=== PATIENT | female | born 1990 | race African-American/Black ===

== ENCOUNTER 2019-07-17 05:32 | Observation (INO) | payer OTHER ==
[2019-07-14 12:07] LABS: BASOPHILS % 0.3 % (0.0-1.0); EOSINOPHILS # (AUTO) 0.1 (0.0-0.4); EOSINOPHILS % 1.8 % (0.0-6.0); HEMATOCRIT 36.6 % (34.2-44.1); HEMOGLOBIN 12.4 g/dL (12.0-16.0); LYMPHOCYTES # (AUTO) 1.6 (1.0-3.2); LYMPHOCYTES % 26.6 % (18.0-39.1); MEAN CORPUSCULAR HEMOGLOBIN 31.9 pg (28-32); MEAN CORPUSCULAR HGB CONC 33.9 g/dL (31-35); MEAN CORPUSCULAR VOLUME 94.1 fL (81-99); MONOCYTES # (AUTO) 0.4 (0.2-0.8); MONOCYTES % 7.2 % (4.4-11.3); NEUTROPHILS # (AUTO) 3.9 (2.1-6.9); NEUTROPHILS % 63.8 % (38.7-80.0); PLATELET COUNT 222 x10e3/uL (140-360); RED BLOOD COUNT 3.89 x10e6/uL (3.6-5.1); RED CELL DISTRIBUTION WIDTH 11.6 % (11.7-14.4)
--- NOTE | 2019-07-14 12:08 | Diagnostic Imaging Report ---
EXAMINATION: CHEST 2 VIEWS INDICATION: Pre-operative COMPARISON: None FINDINGS: LINES/TUBES:None LUNGS:The lungs are well-inflated. No focal consolidation or pulmonary edema. PLEURA:No pleural effusion or pneumothorax. MEDIASTINUM:The cardiomediastinal silhouette appears normal in size and shape. BONES/SOFT TISSUES:No acute osseous injury. ABDOMEN:No free air under the diaphragm. IMPRESSION: No focal pneumonia or pulmonary edema. Signed by: Enrique Ibrahim MD on 07/14/2019 12:06 PM
[2019-07-14 12:22] LABS: CLARITY,URINE CLEAR (CLEAR); COLOR,URINE YELLOW (YELLOW); LEUKOCYTE ESTERASE ,URINE NEGATIVE (NEGATIVE)
[2019-07-14 12:23] LABS: BILIRUBIN,URINE NEGATIVE (NEGATIVE); KETONES,URINE NEGATIVE (NEGATIVE); NITRITE,URINE NEGATIVE (NEGATIVE); PROTEIN,URINE DIPSTICK NEGATIVE (NEGATIVE); URINE UROBILINOGEN 0.2 mg/dL (0.2 - 1)
[2019-07-14 12:30] LABS: HIV 1&2 AB SCREEN NON-REACTIVE (NONREACTIVE)
[~2019-07-17 05:32] MED LIST: IRON256 MG PO
--- OUTSIDE RECORDS SUMMARY | 2019-07-17 05:43 | XMS REPORT ---
Author Author [facility] Address Unknown Phone Unavailable Care Team Providers Care Real Estate Lawyer Name Role Phone Ophelia MANNING Unavailable Unavailable Problems This patient has no known problems. Allergies, Adverse Reactions, Alerts This patient has no known allergies or adverse reactions. Medications This patient has no known medications. Results Test Description Test Time Test Comments Text Results Atomic Results Result Comments CHEST 2 VIEWS 2019-07-14 12:06:00 [place] [id number] Patient Name: MIRTA THOMPSON MR #: [id number] : 1990 Age/Sex: 28/F Req #: [id number] Adm Physician: Ordered by: LUCINDA MANNING MD Report #: [id number] Location: OR Room/Bed: Procedure: [id number] DX/CHEST 2 VIEWS Exam Date: Exam Time: REPORT STATUS: Signed EXAMINATION: CHEST 2 VIEWS INDICATION: Pre-operative COMPARISON: None FINDINGS: LINES/TUBES:None LUNGS:The lungs are well- inflated. No focal consolidation or pulmonary edema. PLEURA:No pleural effusion or pneumothorax. MEDIASTINUM:The cardiomediastinal silhouette appears normal in size and shape. BONES/SOFT TISSUES:No acute osseous injury. ABDOMEN:No free air under the diaphragm. IMPRESSION: No focal pneumonia or pulmonary edema. Signed by: Fabio Concepcion MD on 07/14/2019 12:06 PM Dictated By: FABIO CONCEPCION MD [id number] Transcribed By: DENIZ on 07/14/19 1206 COPY TO: LUCINDA MANNING MD
[2019-07-17] MEDS ORDERED: CEFOXITIN 1GM/ D5W 50ML 100 ML IV ONE (06:00)
[2019-07-17] MEDS ORDERED: BUPIVACAINE LIPOSOME/PF 266 MG/20 ML IJ ONE (07:03)
[2019-07-17] MEDS ORDERED: SODIUM CHLORIDE 0.9% 0 ML ONE (07:26)
[2019-07-17] MEDS ORDERED: BUPIVACAINE HCL 0.5% INJ 30 ML VIAL INJ ONE (08:00)
[2019-07-17] MEDS ORDERED: HYDROMORPHONE 0.2MG/ML-SOD CHL 30ML PCA SYRINGE IV ONE (11:53)
[2019-07-17] MEDS ORDERED: GLYCOPYRROLATE INJ 0.2 MG/ML VIAL ONE (14:16)
[2019-07-17] MEDS ORDERED: PROPOFOL IV EMULSION 10 MG/ML 20 ML VIAL ONE (14:16)
[2019-07-17] MEDS ORDERED: NEOSTIGMINE 1 MG/ML 10ML VIAL ONE (14:16)
[2019-07-17] MEDS ORDERED: VASOPRESSIN INJ 20 UNIT/ML VIAL ONE (14:16)
[2019-07-17] MEDS ORDERED: DEXAMETHASONE SOD PHOS INJ 4 MG/ML VIAL ONE (14:16)
[2019-07-17] MEDS ORDERED: ACETAMINOPHEN 1000 MG/100 ML IV ONE (14:16)
[2019-07-17] MEDS ORDERED: ROCURONIUM BROMIDE 10 MG/ML 5ML VIAL ONE (14:16)
[2019-07-17] MEDS ORDERED: LIDOCAINE HCL 2% LOCAL INJ 5 ML SDV VIAL INJ ONE (14:16)
[2019-07-17] MEDS ORDERED: SEVOFLURANE INHAL SOLN 250 ML PEN BTL ONE (14:16)
[2019-07-17] MEDS ORDERED: ONDANSETRON HCL INJ 2MG/ML 2ML 2 MG/ML VIAL ONE (14:16)
[2019-07-17] MEDS ORDERED: FENTANYL CITRATE/PF 100MCG/2 ML INJ ONE (14:37)
[2019-07-17] MEDS ORDERED: MIDAZOLAM HCL 2 MG/2 ML VIAL ONE (14:37)
[2019-07-17] MEDS ORDERED: CEFOXITIN 2GM/ D5W 50ML 50 ML IV SCH (15:00)
[2019-07-17] MEDS ORDERED: NALOXONE HCL INJ 0.4 MG/ML AMP IV PRN (15:15)
[2019-07-17] MEDS ORDERED: KETOROLAC TROMETHAMINE 30 MG/ML VIAL IV PRN (15:15)
[2019-07-17] MEDS ORDERED: HYDROMORPHONE 0.2MG/ML-SOD CHL 30ML PCA SYRINGE IV PRN (15:15)
[2019-07-17 15:43] VITALS: BP 96/57
[2019-07-17] MEDS: DEXTROSE 5%/LACTATED RINGERS 1,000 ML IV SCH ×2 (16:37→23:30)
[2019-07-17 17:26] VITALS: BP 96/57
--- NOTE | 2019-07-17 17:56 | Operative Report ---
DATE OF PROCEDURE: 07/17/2019 SURGEON: Ko Sosa MD PREOPERATIVE DIAGNOSES: A 28-year-old female, 0 with several multiple large fibroids of the uterus, blocking both ureters and pressing on the bladder causing bilateral hydronephrosis and distended bladder. POSTOPERATIVE DIAGNOSES: A 28-year-old female, 0 with several multiple large fibroids of the uterus blocking both ureters and pressing on the bladder causing bilateral hydronephrosis and distended bladder. PROCEDURES DONE: 1. Exploratory laparotomy. 2. Multiple myomectomy, removed 6 large fibroids from the uterus. [employer] S[employer] SPECIALIST: Johan Marsh MD. ANESTHESIA: General. FINDINGS: At the time of surgery and EUA, cervix looked normal. Uterus is enlarged about 24 weeks of the size, irregular, firm. On laparotomy, has several fibroids, very vascular, the largest one two of them one arising from the front of the uterus on the right side, one arising from the back of the uterus on the right side, about 10 cm each and the third one was in the posterior wall of the uterus in the muscle of the uterus about 8 to 9 cm size of may be 10 cm. The other 3 were coming from the posterior wall of the uterus. Two of them were subserosal and one was intramuscular. I have pictures on the postop note about the location. At the end of the procedure, the uterus is slightly enlarged and removed all almost all fibroids and there is incision on the front of the uterus about 6 to 7 cm size each, did not enter the uterine cavity. Hemostasis satisfactory. No complications. Estimated blood loss around 300 mL. Injected diluted Pitocin i.e. vasopressin one in 30 dilution with saline around the fibroids and along the incision lines before removal and injected the local anesthesia Exparel 20 mL into the abdominal wall and Marcaine into the skin 20 mL at the end of the procedure. Urine clear in the Brumfield bag. COUNTS: Instrument and swab counts were correct. PROCEDURE IN DETAIL: The patient was brought to the operating room, put in the supine position, and general anesthesia was given without any problems. After adequate anesthesia, the patient was examined under anesthesia and findings are as dictated above. Then, she was prepped and draped in the routine fashion and proceeded with the surgery. Brumfield catheter was in the bladder draining clear urine. I then made subumbilical midline vertical incision below the umbilicus and taken down to the fascia. The fascia opened in a vertical fashion and then muscle and identified the parietal peritoneum, opened and entered the abdominal cavity without any problems. Could not put the O'Ashvin-O'Dior retractor because of the large fibroids and gently delivered the uterus along with the fibroids through the incision outside so that surgery could be easy and then all the wet laps put around the uterus and fibroid tumors and took the picture and then did myomectomy one at a time. The one large very vascular fibroid was coming from the front of the uterus on the right side just below the tubal entry that is cornua, that was very vascular, had to tie the blood vessels before making any incision and injected the diluted Pitocin about 1 in 30 dilution with normal saline and injected all around the stump of the fibroids, it was subserosal. The base was very wide and very vascular and then after injecting then made a circular incision and dissected and then clamped the base vessels with the Cook clamps two of them and cut in between and the stump was suture ligated using 1-0 Vicryl and then put tight stitches one layer to stop the bleeding with 1-0 Vicryl and then serosa approximated with 2-0 Vicryl with continuous stitches. With that, the hemostasis was satisfactory and then we went for the second one that was coming from the back of the uterus on to the right side close to the fundus and that one was removed in the same way like the first one and then two more were coming from the fundus of the uterus subserous, injected the diluted Pitocin all around the stumps and then made a circular incision around the fibroid tumor, held the fibroid with towel clip and then dissected all the serosa and clamped the base of the fibroid and removed suture ligated the base using 1-0 Vicryl and then the serosa approximated with 2-0 Vicryl with continuous stitches. After removing these four, there was a huge big one in the posterior wall of the uterus intramuscular, that one in the back wall, injected the Pitocin and made a vertical incision on the back of the uterus and dissected and shelled out the tumor. The tumor held with the [place] clamp and dissected the serosa and at the base clamped with Cook clamp, cut towards the fibroid and removed the fibroids and base was suture ligated using 1-0 Vicryl, suture tie snugged and cut short and then had to put the muscle approximated with 0 Vicryl with continuous stitches two layers and then the serosa approximated with 2-0 Vicryl with continuous stitches. Did not enter the cavity of the uterus. The hemostasis was satisfactory. Altogether, removed 6 tumors and then had to put couple of [id number] stitches in the anterior incision for the hemostasis. The hemostasis was satisfactory and the uterus almost normal size, slightly enlarged and both tubes and ovaries look normal, irrigated and put back the uterus. Hemostasis was satisfactory and covered the incision's back wall and the front wall with Interceed and then closed the abdominal wall in layers. Parietal peritoneum was closed with 3-0 Vicryl with continuous stitches and the fascia was closed with 1 Vicryl using two sutures starting at the corners and ending in the middle and subcutaneous tissue approximated with 2-0 Vicryl with continuous stitches and skin approximated with aly. The patient tolerated the procedure well. There were no complications. Estimated blood loss around 300 mL. No transfusion and urine clear in the Brumfield bag and the patient moved to the recovery room in stable condition. MD SUMI Santiago/JOSHUAL /[id number]
[2019-07-17] MEDS: CEFOXITIN SODIUM 2 G in SODIUM CHLORIDE 0.9% 50ML 50 ML IV SCH ×2 (18:23→22:00)
[2019-07-17] MEDS: ONDANSETRON HCL INJ 2MG/ML 2ML 2 MG/ML VIAL IV PRN (19:13)
[2019-07-17 20:00] VITALS: BP 107/69
[2019-07-17 21:00] VITALS: BP 107/69
[2019-07-18] VITALS (7 sets, daily range): BP systolic 88–119; BP diastolic 53–63
[2019-07-18] MEDS ORDERED: DIPHENHYDRAMINE HCL 25 MG CAP PO PRN (02:45)
[2019-07-18] MEDS: CEFOXITIN SODIUM 2 G in SODIUM CHLORIDE 0.9% 50ML 50 ML IV SCH ×2 (04:00→10:00)
[2019-07-18 05:09] LABS: BASOPHILS % 0.1 % (0.0-1.0); EOSINOPHILS % 0.2 % (0.0-6.0); HEMATOCRIT 27.8 % (34.2-44.1); HEMOGLOBIN 9.4 g/dL (12.0-16.0); LYMPHOCYTES # (AUTO) 1.3 (1.0-3.2); LYMPHOCYTES % 14.2 % (18.0-39.1); MEAN CORPUSCULAR HEMOGLOBIN 32.1 pg (28-32); MEAN CORPUSCULAR HGB CONC 33.8 g/dL (31-35); MEAN CORPUSCULAR VOLUME 94.9 fL (81-99); MONOCYTES # (AUTO) 0.7 (0.2-0.8); MONOCYTES % 7.5 % (4.4-11.3); NEUTROPHILS # (AUTO) 7.1 (2.1-6.9); NEUTROPHILS % 77.8 % (38.7-80.0); PLATELET COUNT 180 x10e3/uL (140-360); RED BLOOD COUNT 2.93 x10e6/uL (3.6-5.1); RED CELL DISTRIBUTION WIDTH 11.4 % (11.7-14.4)
[2019-07-18 05:29] LABS: ANION GAP 10.4 mmol/L (8-16); BLOOD UREA NITROGEN < 5 mg/dL (7-26); CARBON DIOXIDE 24 mmol/L (22-29); CHLORIDE 106 mmol/L (98-107); CREATININE, SERUM 0.69 mg/dL (0.57-1.11); EST GLOMERULAR FILTRATION RATE > 60 ML/MIN (60-); GLUCOSE 128 mg/dL (74-118); POTASSIUM 3.4 mmol/L (3.5-5.1); SODIUM 137 mmol/L (136-145)
[2019-07-18 05:40] LABS: BUN/CREATININE RATIO 7 (6-25)
[2019-07-18] MEDS ORDERED: DIPHENHYDRAMINE HCL INJ 50 MG/ML VIAL IV PRN (05:45)
[2019-07-18] MEDS: ONDANSETRON HCL INJ 2MG/ML 2ML 2 MG/ML VIAL IV PRN (05:52)
[2019-07-18] MEDS ORDERED: DOCUSATE SODIUM 100 MG CAP PO SCH (09:00)
[2019-07-18] MEDS: DEXTROSE 5%/LACTATED RINGERS 1,000 ML IV SCH (10:08)
[2019-07-18] MEDS ORDERED: HYDROCODONE/APAP 5MG-325MG TAB PO PRN (10:30)
[2019-07-18] MEDS ORDERED: IBUPROFEN 400 MG TAB PO PRN (10:30)
[2019-07-18] MEDS ORDERED: HEMOCYTE PLUS1 EACH PO (17:00)
[2019-07-18] MEDS ORDERED: TYLENOL WITH C1 EACH PO (17:02)
[2019-07-18] MEDS ORDERED: MOTRIN200 MG PO (17:02)
[2019-07-18] MEDS ORDERED: COLACE100 MG PO (17:03)
== END 2019-07-18 17:36 | disposition home or self-care (01) ==
LOC: OR 05:32 → PACU V 10:30 → MED/SURG2 15:42
PROVIDERS: ADMIT Specialist; ATTEND Specialist
DX: D25.2 Subserosal leiomyoma of uterus (principal); D25.1 Intramural leiomyoma of uterus; Z88.2 Allergy status to sulfonamides; F17.200 Nicotine dependence, unspecified, uncomplicated; Z01.810 Encounter for preprocedural cardiovascular examination; Z01.812 Encounter for preprocedural laboratory examination; Z01.811 Encounter for preprocedural respiratory examination
CPT/HCPCS: 36415; 71046; 80048; 81003; 84702; 85025; 86850; 86900; 87390; 88305; 93005; C1765; G0378; G0433; G0435; J0694; J1100; J1200; J1885; J2001; J2250; J2405; J2710; J3010; J7050